=== PATIENT | female | born 1940 | race Two or more races ===

== ENCOUNTER 2022-08-18 18:56 | Emergency (ER) | payer MEDICARE, OTHER ==
[~2022-08-18] VITALS: Ht 162.6 cm; Wt 75.0 kg
[2022-08-19 01:05] VITALS: BP 147/74
== END 2022-08-19 01:08 | disposition home or self-care (01) ==
LOC: ER 19:01
DX: J06.9 Acute upper respiratory infection, unspecified (principal); Z20.822 Contact with and (suspected) exposure to COVID-19
CPT/HCPCS: 36415; 87426; 87804